=== PATIENT | female | born 2000 | race Caucasian/White ===

== ENCOUNTER → 2018-02-27 | Outpatient (CLI) | payer BC | LOC: RAD 14:42 | DX: Z34.91 Encounter for supervision of normal pregnancy, unspecified, first trimester (principal); Z3A.01 Less than 8 weeks gestation of pregnancy ==

== ENCOUNTER → 2019-07-27 | Outpatient (CLI) | payer BC | LOC: LAB 09:18 | DX: N92.6 Irregular menstruation, unspecified (principal) ==

== ENCOUNTER → 2022-02-02 | Outpatient (CLI) | payer BC ==
[2022-02-02 10:14] LABS: BASO # 0.04 K/mm3 (0.02-0.10); EOS # 0.11 K/mm3 (0.04-0.40); EOS % 1.4 % (1.0-5.0); HEMATOCRIT 43.9 % (37.0-47.0); HEMOGLOBIN 15.4 g/dL (12.5-16.0); LYMPH# 2.02 K/mm3 (1.50-4.00); MEAN CELL VOLUME 83 fl (78-100); MEAN CORPUSCULAR HEMOGLOBIN 29 pg (27-31); MEAN CORPUSCULAR HGB CONC 35 g/dL (33-37); MEAN PLATELET VOLUME 10.5 fl (7.4-10.4); MONO # 0.48 K/mm3 (0.20-0.80); NEU # 5.29 K/mm3 (1.40-6.50); PLATELET COUNT 257 K/mm3 (130-400); RED CELL DISTRIBUTION WIDTH 12.3 % (11.5-14.5)
[2022-02-02 10:20] LABS: POTASSIUM 4.1 mmol/L (3.5-5.1); SODIUM 138 mmol/L (136-145)
[2022-02-02 10:21] LABS: ALBUMIN 4.3 g/dL (3.5-5.0); CALCIUM 9.2 mg/dL (8.3-10.5)
[2022-02-02 10:23] LABS: GLUCOSE 83 mg/dL (65-105); TOTAL PROTEIN 7.1 g/dL (6.4-8.3)
[2022-02-02 10:24] LABS: CARBON DIOXIDE 20 mmol/L (22-29)
[2022-02-02 10:25] LABS: TOTAL BILIRUBIN 0.7 mg/dL (0.2-1.2)
[2022-02-02 10:28] LABS: AST-SGOT 14 U/L (5-34)
[2022-02-02 10:30] LABS: ALT/SGPT 18 U/L (0-55)
[2022-02-02 11:22] LABS: ERYTHROCYTE SEDIMENTATION RATE 13 mm/hr (0-20)
[2022-02-02 23:34] LABS: CORTISOL, AM (0800) 7 ug/dL (3-20)
[2022-02-03 00:41] LABS: T3 TOTAL 123 ng/dL (35-193)
== END ==
LOC: LAB 09:40
PROVIDERS: Family Medicine
DX: Z00.00 Encounter for general adult medical examination without abnormal findings (principal); N91.2 Amenorrhea, unspecified; D50.9 Iron deficiency anemia, unspecified; E78.5 Hyperlipidemia, unspecified; L60.0 Ingrowing nail; E66.9 Obesity, unspecified; R53.83 Other fatigue; R73.9 Hyperglycemia, unspecified; E55.9 Vitamin D deficiency, unspecified